=== PATIENT | female | born 1995 | race Caucasian/White ===

== ENCOUNTER → 2024-10-17 10:24 | Outpatient (BNVA) | payer MEDICAID, SELFPAY | PROVIDERS: Family Provider Internal Medicine; Visit Provider Podiatrist Foot & Ankle Surgery | DX: M79.671 Pain in right foot (principal); M79.672 Pain in left foot; M21.621 Bunionette of right foot; M21.622 Bunionette of left foot; R23.4 Changes in skin texture; R26.89 Other abnormalities of gait and mobility | CPT/HCPCS: 99203 ==

== ENCOUNTER 2024-12-14 20:00 | Outpatient (CLI) | payer MEDICAID, SELFPAY | END 2024-12-14 20:01 | disposition home or self-care (01) | LOC: SLEEP 23:16 | PROVIDERS: Family Provider Internal Medicine; Referring Provider Nurse Practitioner Family; Visit Provider Internal Medicine Pulmonary Disease | DX: G47.33 Obstructive sleep apnea (adult) (pediatric) (principal); G47.36 Sleep related hypoventilation in conditions classified elsewhere | CPT/HCPCS: 95810 ==

== ENCOUNTER 2025-02-15 20:00 | Outpatient (CLI) | payer MEDICAID, SELFPAY | END 2025-02-15 20:01 | disposition home or self-care (01) | LOC: SLEEP 20:33 | PROVIDERS: Family Provider Internal Medicine; PCP Nurse Practitioner Family; Referring Provider Nurse Practitioner Family; Visit Provider Internal Medicine Pulmonary Disease | DX: G47.33 Obstructive sleep apnea (adult) (pediatric) (principal) | CPT/HCPCS: 95811 ==